=== PATIENT | female | born 1945 | race Caucasian/White ===

== ENCOUNTER 2023-01-05 06:35 | Day surgery (SDC) | payer OTHER ==
--- NOTE | 2023-01-02 14:53 | RAD REPORT ---
EXAM DESCRIPTION: RAD - Chest Pa And Lat (2 Views) - 01/02/2023 2:45 pm CLINICAL HISTORY: Pre op pending lumpectomy Chest pain. COMPARISON: <Comparisons> FINDINGS: The lungs are clear. The heart is normal in size. No displaced fractures. IMPRESSION: No acute or concerning finding suspected. The USPSTF recommends annual screening for lung cancer with low-dose CT (LDCT) in adults aged 50 to 80 years who have a 20 pack-year smoking history and currently smoke or have quit within the past 15 years.
[2023-01-02 15:48] LABS: Absolute Lymphocytes (CBC) 1.2 K/uL (0.7-4.9); Hematocrit 36.6 % (36.0-45.0); Lymphocytes % 14.5 % (15.3-44.8); MCV 94.2 fL (80-100); MPV 6.7 fL (7.6-11.3); Platelets 458 thou/uL (152-406); RBC Red Blood Cell Count 3.88 M/uL (3.86-4.86)
[2023-01-02 16:06] LABS: Potassium 4.8 mEq/L (3.5-5.1)
[2023-01-05] MEDS ORDERED: NA CHLORIDE 0.9% 1,000 ML ONE (07:11)
[2023-01-05] MEDS ORDERED: CEFAZOLIN SODIUM 1 GM/VIAL ONE (07:11)
[2023-01-05] MEDS ORDERED: FENTANYL CITR 100 MCG/2 ML ONE (10:43)
[2023-01-05] MEDS ORDERED: propofoL 200 MG/20 ML VIAL IV ONE (10:43)
[2023-01-05] MEDS ORDERED: LIDOCAINE 2% MPF 5 ML VIAL ONE (10:44)
[2023-01-05] MEDS ORDERED: MIDAZOLAM HCL 2 MG/2 ML INJ ONE (10:44)
[2023-01-05] MEDS ORDERED: ROCURONIUM 50 MG/5 ML VIAL IV ONE (10:50)
[2023-01-05] MEDS ORDERED: ONDANSETRON 4 MG/2 ML VIAL ONE (10:50)
[2023-01-05] MEDS ORDERED: GLYCOPYRROLATE 0.2 MG/ML SYR ONE (10:51)
[2023-01-05] MEDS ORDERED: NEOSTIGMINE 1 MG/ML -10 ML VIAL ONE (10:51)
[2023-01-05] MEDS: CEFAZOLIN SODIUM 1 GM/VIAL ONE ×2 (11:10→11:42)
[2023-01-05] MEDS ORDERED: EPHEDRINE SULF 50 MG/ML VIAL ONE (11:40)
--- NOTE | 2023-01-05 12:28 | P.BOP ---
Preoperative diagnosis: right breast mass Postoperative diagnosis: same Primary procedure: Right breast lumpectomy needle localized Operating Room Aide: Isaura Martinez (Pedro) Estimated blood loss: <10cc Specimen: first specimen with wire& clip, second specimen xtra palpated 12-1 oclock Findings: needle and clip on first specimen by Dr Moreno, Complications: None Transferred to: Recovery Room Condition: Good
[2023-01-05] MEDS ORDERED: Mastisol Adhesive Liq ONE (12:32)
[2023-01-05] MEDS ORDERED: dexAMETHasone 4 MG/ML VIAL ONE (12:47)
[2023-01-05] MEDS: HYDROMORPHONE HCL 1 MG/ML INJ ONE ×2 (13:10→13:16)
--- NOTE | 2023-01-05 13:14 | EKG ---
Test Date: 2023-01-02 Test Time: 14:12:47 [employer]: CANDACE MEASUREMENT RESULTS: Intervals: Rate: 62 IN: 218 QRSD: 74 QT: 398 QTc: 403 [place]: P: 65 IN: 218 QRS: -59 T: 84 INTERPRETIVE STATEMENTS: Sinus rhythm with 1st degree AV block Left axis deviation Septal infarct, age undetermined Abnormal ECG No previous ECG available for comparison Electronically Signed On 01-05-23 13:11:36 CDT by Bhupendra Sood
[2023-01-05 14:27] VITALS: BP 163/72; TEMP 97.1; O2SAT 97
--- NOTE | 2023-01-05 15:28 | RAD REPORT ---
EXAM DESCRIPTION: [facility] BREAST TISSUE SAMPLE - 01/05/2023 12:22 pm CLINICAL HISTORY: Status post lumpectomy. For lesion localization COMPARISON: Sonographic images from ultrasound guidance of right breast localization of the same day . TECHNIQUE: Two mammographic specimen views. Sonographic images for wire localization of the specimen s were also performed. FINDINGS: The initial mammographic specimen demonstrates the localization wire as well as a small ro unded clip approximating the course of the wire. Dense tissue present along the wire. Of note, the pa lpable nodule was not mammographically discrete. The post biopsy clip is present along the distal margin of the specimen, located in box number E6. Sonographic localization of the specimen shows hypoechoic lobulated mass, with the wire coursing thro ugh it superficial portion, similar in configuration to the mass targeted for localization preoperati vely, as best evaluated on the provided specimen images. IMPRESSION: 1. Sonographic and mammographic images of the right breast lumpectomy specimen, with fin dings as above. The findings were communicated to Kody Aldana on 01/05/2023 at 12:35 hours. BI-RAD: 4, suspicious abnormality. ResultCode: S *A negative x-ray report should not delay biopsy if a dominant or clinically suspicious mass is prese nt. 4.8% of cancers are not identified by x-ray. *A negative report may reinforce clinical impression. *Adenosis and dense breasts may obscure an underlying neoplasm. *False positive reports average 6-10%.
--- NOTE | 2023-01-08 09:21 | OP ---
Date of Procedure: 01/07/2023 Surgeon: Kody Aldana MD Farm Appraiser: Isaura Sanchez. Preoperative Diagnosis: Right breast mass. Postoperative Diagnosis: Right breast mass. Procedure: Right breast lumpectomy, needle localized. Estimated Blood Loss: Less than 10 mL. Specimen: First specimen was the area that was identified with a clip with wire and on the imaging. Second specimen is an extra area that is sealed, there is a lump in that area and also goes with per brianna findings of a palpable lesion. Findings: Needle and clip within the specimen by Dr. Moreno, radiologist. Complications: None. Indication: This is the case of a 77-year-old patient, who comes to us with abnormal findings on bharti ging. The patient initially had at [facility], then had them here. The [facility] imaging was brought to [facility] for review with the radiologist. She also had her own imaging and also this morning all imaging. The lesion of concern imaging was explained to the patient as the one will be biopsied. Sh lucita feels near by some other lump that we will look at that area to see if it is just an extra lump in that region, but once again, we specified in details that the area suspicious is the area that the ra diologist is looking for. The benefits, alternatives, and risks of right breast lumpectomy, needle l ocalized fully explained, which include, but not limited to infection, bleeding, damage to adjacent s tructures, anesthesia complication, nonhealing wound, HI, and even . She also understands this may not any relieve symptoms. She might need more than one surgical intervention. She understood, s igned a consent. Procedure In Detail: The patient was brought this morning for Radiology evaluation. They localized the clip and the lesions and put a wire in that area with the necessary test. Also, we and the patie nt marked an area that she also feels a little lump that has not shown any mammogram, but is near the area of concern. We found a mass in that area and we will also remove that lump. We proceeded then to brought the patient to the operating room, placed in supine position. Anesthesia was done withou t complication. The right breast was prepped and draped in the usual sterile fashion making sure the wire is still intact. An incision was made in that area after time-out. Incision was carried down and we removed the lump around the area of concern with the wire always in place and secured. The rand mp was removed with the extra negative margins and then sent to the radiologist for confirmation. In the meantime, the patient felt like a palpable mass, looked like a lump in that region, so I also re moved that and sent as an extra specimen. Dr. Moreno confirmed the lesion is within the specimen, wi re is intact and clips there. The patient tolerated the procedure well. At that moment, I proceeded to irrigate the area. I could not palpate any other lesions in that region, so I closed the cuff an d the breast with 3-0 chromic and 4-0 PDS. Steri-Strips on top. Hemostasis was obtained before clos ure and irrigation was done. The patient tolerated the procedure well. Sponge count, instrument cou nts correct. The patient was sent to recovery in stable condition. SANGEETA/FLORA Voice ID: [id number] Report ID: [id number]
--- NOTE | 2023-01-08 09:21 | DS ---
Date of Discharge: 01/05/2023 Diagnosis: Right breast mass. Procedure: Right breast lumpectomy, needle localized. Disposition: Home. Activity: As tolerated. No heavy lifting. Plan: Follow up in my office in 1 week. Call for appointment at [phone]. Use breast support. Medications: Previously called from my office. SANGEETA/FLORA Voice ID: [id number] Report ID: [id number]
== END 2023-01-05 14:24 | disposition home or self-care (01) ==
LOC: OR 06:35
PROVIDERS: ATTEND Surgery
PROC: 0HBT0ZX Excision of Right Breast, Open Approach, Diagnostic (ICD-10-PCS; 2023-01-05)
PROC: 0HBT0ZZ Excision of Right Breast, Open Approach (ICD-10-PCS; principal; 2023-01-05 10:45)
DX: N60.31 Fibrosclerosis of right breast (principal)
CPT/HCPCS: 19301; 93005; 85025; 80048; 36415; 88305 ×2; 71046; 76098 ×2; J2704; J1100; J2001; J2250; J3010; J1170; J2405; J7030; J0690; 88307; J2710